=== PATIENT | male | born 1945 | race Asian ===

== ENCOUNTER 2023-07-01 14:08 | Inpatient (IN) | payer OTHER, MEDICAID ==
[~2023-07-01] VITALS: Ht 188 cm; Wt 59.5 kg
[~2023-07-01 14:08] MED LIST: APIX2.5T PO; ASCO500C18 PO; BISA10SU61 RC; DIGO250T PO; DOCU-144 PO; FINA-37 PO; FURO-149 PO; MAG30ORA22 PO; MIDO10TA PO; MOM PO; MULT-1117 PO; NA P133E41 RC; NITR0.4T47 PO; OXYC-874 PO; SENN8.6T19 PO; SPIR50TA5 PO
[2023-07-01 14:15] VITALS: BP_SYST 102; PULSE 70; RESP 18; TEMP 98; O2SAT 98
[2023-07-01 14:53] LABS: BASOPHILS % (AUTO) 0.8 % (0.0-2.0); EOSINOPHILS # (AUTO) 0.1 K/uL (0.0-0.4); EOSINOPHILS % (AUTO) 1.7 % (0.0-4.0); HEMATOCRIT 34.5 % (36-54); LYMPHOCYTES # (AUTO) 1.4 K/uL (1.0-5.5); LYMPHOCYTES % (AUTO) 33.7 % (20.5-51.5); MEAN CORPUSCULAR HEMOGLOBIN 41 pg (27-31); MEAN CORPUSCULAR HGB CONC 35 % (32-36); MEAN CORPUSCULAR VOLUME 119 fL (79.0-98.0); MONOCYTES # (AUTO) 0.6 K/uL (0.0-1.0); MONOCYTES % (AUTO) 14.4 % (1.7-9.3); NEUTROPHILS % (AUTO) 49.4 % (40.0-70.0); PLATELET COUNT (AUTO) 136 K/uL (130-430); RED BLOOD CELL COUNT(AUTO) 2.91 MIL/uL (4.2-6.2); RED CELL DISTRIBUTION WIDTH 19.7 % (9.0-15.0)
[2023-07-01 15:04] LABS: ANION GAP 3 (5-15); CALCIUM 8.2 mg/dL (8.4-11.0); CARBON DIOXIDE 34 mmol/L (23-29); CHLORIDE 100 mmol/L (98-107); CREATININE 0.88 mg/dL (0.55-1.30); GLUCOSE 92 mg/dL (74-106); POTASSIUM 4.3 mmol/L (3.5-5.1); SODIUM SERUM 137 mmol/L (136-145); UREA NITROGEN, BLOOD 21 mg/dL (8-21)
[2023-07-01 15:05] LABS: INR 1.1 (0.80-1.20); PROTHROMBIN TIME 11.1 SECS (9.5-12.5)
[2023-07-01 15:09] LABS: ALANINE AMINOTRANSFERASE 21 U/L (12-78); ALBUMIN 2.4 g/dL (3.4-4.8); ANISOCYTOSIS 1+; ASPARTATE AMINOTRANSFERASE 21 U/L (10-37); BILIRUBIN,DIRECT 1.4 mg/dL (0.0-0.3); OVALOCYTES FEW; TOTAL BILIRUBIN 1.9 mg/dL (0.0-1.0); TOTAL PROTEIN, SERUM 7.6 g/dL (6.4-8.3)
[2023-07-01 15:46] LABS: BILIRUBIN,URINE NEGATIVE (NEGATIVE); BLOOD, URINE NEGATIVE (NEGATIVE); CLARITY/URINE CLEAR (CLEAR); COLOR,URINE YELLOW (YELLOW); GLUCOSE,URINE NEGATIVE (NEGATIVE); KETONES,URINE NEGATIVE (NEGATIVE); LEUKOCYTE ESTERASE ,URINE NEGATIVE (NEGATIVE); NITRITE, URINE NEGATIVE (NEGATIVE); PROTEIN URINE NEGATIVE (NEGATIVE); UROBILINOGEN,URINE 0.2 (0.2-1.0)
[2023-07-01] MEDS ORDERED: CALC-1197 PO (17:46)
[2023-07-01] MEDS ORDERED: MIRT7.5T11 PO (17:46)
[2023-07-01] MEDS ORDERED: DULR10 RC (17:46)
[2023-07-01] MEDS ORDERED: LACT10SO6 PO (17:46)
[2023-07-01] MEDS ORDERED: BALS60OI (17:46)
[2023-07-01] MEDS ORDERED: ACET-2766 PO (17:46)
[2023-07-01] MEDS ORDERED: POTA-80 PO (17:46)
[2023-07-01] MEDS ORDERED: BUDE0.5A INH (17:46)
[2023-07-01] MEDS ORDERED: ACET-2358 PO (17:46)
[2023-07-01] MEDS ORDERED: ALBU2.5V7 INH (17:46)
[2023-07-01] MEDS ORDERED: PANT20TA2 PO (17:46)
[2023-07-01] MEDS ORDERED: PANTOPRAZOLE SODIUM 40 MG/VIAL (PROTONIX) ONE (18:26)
[2023-07-01] MEDS: PANTOPRAZOLE SODIUM 80 MG in NS 100 ML IV ONE (18:33)
[2023-07-01] MEDS ORDERED: MILK OF MAGNESIA 30 ML UDC PO PRN (21:15)
[2023-07-01] MEDS ORDERED: ACETAMINOPHEN PO SCH (21:15)
[2023-07-01] MEDS ORDERED: NITROGLYCERIN 0.4 MG TAB.SUBL SL PRN (21:15)
[2023-07-01] MEDS ORDERED: ACETAMINOPHEN 500 MG TABLET PO PRN (21:15)
[2023-07-01] MEDS ORDERED: BISACODYL 10 MG/SUPPOSITORY RC SCH (21:15)
[2023-07-01] MEDS ORDERED: MIDODRINE HCL 5 MG TABLET (PROAMATINE) PO SCH (21:15)
[2023-07-01] MEDS ORDERED: SODIUM PHOSPHATE,MONO-DIBASIC 133 ML ENEMA RC SCH (21:15)
[2023-07-01] MEDS ORDERED: ALBUTEROL SULFATE 0.083% 2.5 MG/3 ML VIAL.NEB INH SCH (21:15)
[2023-07-01 21:25] VITALS: BP_SYST 104; PULSE 80; O2SAT 98
[2023-07-01 21:27] VITALS: BP_SYST 101; PULSE 79; RESP 16; TEMP 98.1; O2SAT 100
[2023-07-01 21:30] VITALS: O2SAT 99
[2023-07-01] MEDS: BUDESONIDE 0.5 MG/2 ML AMPUL.NEB INH SCH (23:34)
[2023-07-02] VITALS (7 sets, daily range): BP systolic 98–107; PULSE 66–87; RESP 16–20; TEMP 96.8–100.1; O2SAT 4–100
[2023-07-02] MEDS ORDERED: OXYCODONE/ACETAMINOPHEN 5-325 TABLET PO PRN (00:15)
[2023-07-02] MEDS: NACL 0.9% 1,000 ML IV SCH (01:49)
[2023-07-02] MEDS: MIDODRINE HCL 5 MG TABLET (PROAMATINE) PO SCH (02:16)
[2023-07-02 06:43] LABS: BASOPHILS % (AUTO) 1.2 % (0.0-2.0); EOSINOPHILS # (AUTO) 0.2 K/uL (0.0-0.4); EOSINOPHILS % (AUTO) 4.3 % (0.0-4.0); HEMATOCRIT 33.8 % (36-54); HEMOGLOBIN 11.5 g/dL (14.0-18.0); LYMPHOCYTES # (AUTO) 1.3 K/uL (1.0-5.5); LYMPHOCYTES % (AUTO) 33.1 % (20.5-51.5); MEAN CORPUSCULAR HEMOGLOBIN 41 pg (27-31); MEAN CORPUSCULAR HGB CONC 34 % (32-36); MEAN CORPUSCULAR VOLUME 120 fL (79.0-98.0); MONOCYTES # (AUTO) 0.7 K/uL (0.0-1.0); MONOCYTES % (AUTO) 16.8 % (1.7-9.3); NEUTROPHILS # (AUTO) 1.7 K/uL (1.8-7.7); NEUTROPHILS % (AUTO) 44.6 % (40.0-70.0); PLATELET COUNT (AUTO) 109 K/uL (130-430); RED BLOOD CELL COUNT(AUTO) 2.82 MIL/uL (4.2-6.2); WHITE BLOOD COUNT (AUTO) 3.9 K/uL (4.8-10.8)
[2023-07-02 07:20] LABS: ALANINE AMINOTRANSFERASE 37 U/L (12-78); ALBUMIN 2.1 g/dL (3.4-4.8); ANION GAP 2 (5-15); ASPARTATE AMINOTRANSFERASE 23 U/L (10-37); CARBON DIOXIDE 34 mmol/L (23-29); CHLORIDE 101 mmol/L (98-107); GLUCOSE 92 mg/dL (74-106); PHOSPHORUS 3.1 mg/dL (2.7-4.5); POTASSIUM 3.7 mmol/L (3.5-5.1); SODIUM SERUM 137 mmol/L (136-145); TOTAL BILIRUBIN 2.1 mg/dL (0.0-1.0); TOTAL PROTEIN, SERUM 6.8 g/dL (6.4-8.3); UREA NITROGEN, BLOOD 18 mg/dL (8-21)
[2023-07-02] MEDS: DOCUSATE SODIUM 100 MG CAPSULE PO SCH (09:00)
[2023-07-02] MEDS: CALCIUM CARBONATE/VITAMIN D3 1 TAB TABLET PO SCH (09:00)
[2023-07-02] MEDS: MULTIVITAMINS TAB 1 TABLET PO SCH (09:00)
[2023-07-02] MEDS: FINASTERIDE 5 MG TABLET (PROSCAR) PO SCH (09:00)
[2023-07-02] MEDS: POTASSIUM CHLORIDE 20 MEQ TABLET.ER PO SCH (09:00)
[2023-07-02] MEDS: ASCORBIC ACID 500 MG TABLET PO SCH (09:00)
[2023-07-02] MEDS: SPIRONOLACTONE 50 MG TABLET (ALDACTONE) PO SCH (09:00)
[2023-07-02] MEDS: LACTULOSE 20 GM/30 ML UDC PO SCH (09:00)
[2023-07-02] MEDS ORDERED: PANTOPRAZOLE SODIUM 40 MG TAB PO SCH (09:00)
[2023-07-02] MEDS: FUROSEMIDE 40 MG TABLET PO SCH (09:00)
[2023-07-02] MEDS: PANTOPRAZOLE SODIUM 40 MG/VIAL (PROTONIX) IVP SCH (09:30)
[2023-07-02] MEDS: MIRTAZAPINE 15 MG TABLET PO SCH (21:16)
[2023-07-02] MEDS: SENNOSIDES 8.6 MG TABLET PO SCH (21:16)
[2023-07-03] VITALS (9 sets, daily range): BP systolic 100–117; PULSE 74–94; RESP 16–20; TEMP 97.6–98.8; O2SAT 96–100
[2023-07-03 06:44] LABS: BASOPHILS % (AUTO) 0.7 % (0.0-2.0); EOSINOPHILS # (AUTO) 0.1 K/uL (0.0-0.4); EOSINOPHILS % (AUTO) 2.7 % (0.0-4.0); HEMATOCRIT 33.1 % (36-54); HEMOGLOBIN 11.2 g/dL (14.0-18.0); LYMPHOCYTES # (AUTO) 1.2 K/uL (1.0-5.5); LYMPHOCYTES % (AUTO) 28.8 % (20.5-51.5); MEAN CORPUSCULAR HEMOGLOBIN 41 pg (27-31); MEAN CORPUSCULAR HGB CONC 34 % (32-36); MEAN CORPUSCULAR VOLUME 120 fL (79.0-98.0); MONOCYTES # (AUTO) 0.6 K/uL (0.0-1.0); MONOCYTES % (AUTO) 13.6 % (1.7-9.3); NEUTROPHILS # (AUTO) 2.2 K/uL (1.8-7.7); NEUTROPHILS % (AUTO) 54.2 % (40.0-70.0); PLATELET COUNT (AUTO) 104 K/uL (130-430); RED BLOOD CELL COUNT(AUTO) 2.77 MIL/uL (4.2-6.2); RED CELL DISTRIBUTION WIDTH 18.1 % (9.0-15.0); WHITE BLOOD COUNT (AUTO) 4.1 K/uL (4.8-10.8)
[2023-07-03 07:11] LABS: ALANINE AMINOTRANSFERASE 21 U/L (12-78); ANION GAP 3 (5-15); ASPARTATE AMINOTRANSFERASE 29 U/L (10-37); CALCIUM 7.9 mg/dL (8.4-11.0); CARBON DIOXIDE 31 mmol/L (23-29); CHLORIDE 104 mmol/L (98-107); CREATININE 0.63 mg/dL (0.55-1.30); GLUCOSE 101 mg/dL (74-106); POTASSIUM 3.6 mmol/L (3.5-5.1); SODIUM SERUM 138 mmol/L (136-145); TOTAL PROTEIN, SERUM 6.6 g/dL (6.4-8.3); UREA NITROGEN, BLOOD 12 mg/dL (8-21)
[2023-07-03] MEDS: BISACODYL 5 MG TABLET.DR (DULCOLAX) PO ONE (15:09)
[2023-07-03] MEDS: GOLYTELY / COLYTE SOLUTION 4 LITERS PO ONE (18:13)
[2023-07-04] VITALS (9 sets, daily range): BP systolic 91–128; PULSE 70–97; RESP 14–17; TEMP 97.2–98.4; O2SAT 93–100
[2023-07-04 05:40] LABS: INR 1.1 (0.80-1.20); PROTHROMBIN TIME 11.2 SECS (9.5-12.5)
[2023-07-04] MEDS: fentaNYL CITRATE/PF 100 MCG/2 ML AMP ONE (07:50)
[2023-07-04] MEDS: MIDAZOLAM HCL 5 MG/5 ML VIAL ONE (07:50)
[2023-07-04 08:06] LABS: AFP, TUMOR MARKER 3.1 ng/mL (0.0-8.4)
[2023-07-04] MEDS: LANOLIN ALCOHOL/MO/W.PET/CERES 57 GM CREAM..G. TP SCH (21:55)
[2023-07-04] MEDS: APIXABAN 2.5 MG TABLET PO SCH (21:57)
[2023-07-05] VITALS (8 sets, daily range): BP systolic 93–125; PULSE 85–92; RESP 15–18; TEMP 96.8–98.1; O2SAT 92–100
[2023-07-05 05:08] LABS: HEMATOCRIT 33.3 % (36-54); HEMOGLOBIN 11.3 g/dL (14.0-18.0); MEAN CORPUSCULAR HEMOGLOBIN 41 pg (27-31); MEAN CORPUSCULAR HGB CONC 34 % (32-36); MEAN CORPUSCULAR VOLUME 120 fL (79.0-98.0); PLATELET COUNT (AUTO) 108 K/uL (130-430); RED BLOOD CELL COUNT(AUTO) 2.77 MIL/uL (4.2-6.2); RED CELL DISTRIBUTION WIDTH 18.2 % (9.0-15.0); WHITE BLOOD COUNT (AUTO) 3.8 K/uL (4.8-10.8)
[2023-07-05 05:32] LABS: ANION GAP 4 (5-15); CALCIUM 7.9 mg/dL (8.4-11.0); CARBON DIOXIDE 31 mmol/L (23-29); CHLORIDE 102 mmol/L (98-107); CREATININE 0.67 mg/dL (0.55-1.30); GLUCOSE 93 mg/dL (74-106); POTASSIUM 3.3 mmol/L (3.5-5.1); SODIUM SERUM 137 mmol/L (136-145); UREA NITROGEN, BLOOD 11 mg/dL (8-21)
[2023-07-05 07:06] LABS: HEPATITIS B CORE AB, TOTAL Positive (Negative); HEPATITIS B SURFACE AG Negative (Negative); HEPATITIS C VIRUS AB Non Reactive (Non Reactive)
[2023-07-05 09:35] LABS: ATYPICAL LYMPHOCYTES % 4 % (0-0); BAND % (MANUAL) 8 % (0-6); BASOPHILS % (MANUAL) 0 % (0-2); EOSINOPHILS % (MANUAL) 2 % (0-7); LYMPHOCYTES % (MANUAL) 16 % (20-46); MONOCYTES % (MANUAL) 10 % (0-11)
[2023-07-05 09:36] LABS: ANISOCYTOSIS 1+; OVALOCYTES FEW; PLATELET ESTIMATE DECREASED (ADEQUATE)
[2023-07-05] MEDS: BALSAM PERU/CASTOR OIL 56.7 GM OINT...G. TP SCH (09:48)
[2023-07-05] MEDS ORDERED: BISACODYL 10 MG/SUPPOSITORY RC PRN (15:14)
[2023-07-05] MEDS ORDERED: ALBUTEROL SULFATE 0.083% 2.5 MG/3 ML VIAL.NEB INH PRN (15:15)
[2023-07-05] MEDS ORDERED: PRO40 PO (15:15)
[2023-07-05] MEDS ORDERED: SUCR1TAB2 PO (15:17)
[2023-07-05] MEDS ORDERED: DOCU-144 PO (15:19)
[2023-07-05] MEDS: SUCRALFATE 1 GM TABLET PO SCH (17:45)
[2023-07-05] MEDS: POTASSIUM CHLORIDE 20 MEQ TABLET.ER PO ONE (17:45)
[2023-07-06 00:33] VITALS: BP_SYST 103; PULSE 88; RESP 16; TEMP 98.4; O2SAT 98
[2023-07-06 07:25] VITALS: O2SAT 99
[2023-07-06 08:00] VITALS: BP_SYST 98; PULSE 91; RESP 14; TEMP 97.8; O2SAT 99
[2023-07-06 11:56] VITALS: BP_SYST 91; PULSE 70; RESP 17; TEMP 97.7; O2SAT 100
[2023-07-06 13:48] VITALS: BP_SYST 94; PULSE 88; RESP 16; TEMP 97.1; O2SAT 95
[2023-07-06 16:00] VITALS: BP_SYST 88; PULSE 98; RESP 18; TEMP 97.9; O2SAT 98
[2023-07-06] MEDS ORDERED: BUDESONIDE 0.5 MG/2 ML AMPUL.NEB INH SCH (19:00)
== END 2023-07-06 16:45 | DRG 377 ==
LOC: SED 14:08 → STU 17:03 → SMU 07-03 13:51
PROVIDERS: ADMIT Internal Medicine; ATTEND Internal Medicine
PROC: 0DB98ZX Excision of Duodenum, Via Natural or Artificial Opening Endoscopic, Diagnostic (ICD-10-PCS; 2023-07-04)
PROC: 0DB78ZX Excision of Stomach, Pylorus, Via Natural or Artificial Opening Endoscopic, Diagnostic (ICD-10-PCS; principal; 2023-07-04 07:30)
PROC: 0DJD8ZZ Inspection of Lower Intestinal Tract, Via Natural or Artificial Opening Endoscopic (ICD-10-PCS; 2023-07-04 07:30)
DX: K26.4 Chronic or unspecified duodenal ulcer with hemorrhage (principal); E43 Unspecified severe protein-calorie malnutrition; D62 Acute posthemorrhagic anemia; I50.32 Chronic diastolic (congestive) heart failure; Z68.1 Body mass index [BMI] 19.9 or less, adult; D61.818 Other pancytopenia; K64.8 Other hemorrhoids; I48.91 Unspecified atrial fibrillation; K29.70 Gastritis, unspecified, without bleeding; K74.60 Unspecified cirrhosis of liver; K44.9 Diaphragmatic hernia without obstruction or gangrene; I25.10 Atherosclerotic heart disease of native coronary artery without angina pectoris; J44.9 Chronic obstructive pulmonary disease, unspecified; N40.0 Benign prostatic hyperplasia without lower urinary tract symptoms; Z79.01 Long term (current) use of anticoagulants; Z79.899 Other long term (current) drug therapy; Z88.8 Allergy status to other drugs, medicaments and biological substances; Z79.51 Long term (current) use of inhaled steroids
CPT/HCPCS: 36415; 43239; 45378; 71045; 71250-TC; 76700; 80048; 80053; 80076; 81001; 81003; 82105; 83735; 84100; 85007; 85025; 85027; 85610; 85730; 86704; 86708; 86803; 86886; 86900; 86901; 87081; 87340; 88305; 88312; 88313; 93005; 94640; 94760; 96361; 96374; 99285; C9113; G0378; J2250; J3010; J7626